=== PATIENT | female | born 1965 ===

== ENCOUNTER 2023-10-03 09:08 | Day surgery (SDC) | payer OTHER ==
[2023-10-03] VITALS (16 sets, daily range): BP systolic 111–134; BP diastolic 71–94
[~2023-10-03] VITALS: Ht 157.5 cm; Wt 78.0 kg
[~2023-10-03 09:08] MED LIST: BUPR150ER PO; Lactated Ringer's 1,000 ML IV SCH; NICO21TP TOP
[2023-10-03] MEDS ORDERED: Ipratropium/Albuterol SulF 2.5-0.5MG/3 ML Amp INH ONE (10:10)
--- NOTE | 2023-10-03 10:38 | NUR ---
POST DUONEB, PT BEING ENCOURAGED TO DEEP BREATH AND COUGH, AND PT REPOSITIONING - PT'S BREATH SOUNDS ARE STILL SHALLOW BUT SHE IS CLEAR THROUGHOUT BILATERALLY.
[2023-10-03] MEDS ORDERED: propofoL 40 ML IV ONE (10:47)
[2023-10-03] MEDS ORDERED: Midazolam HCl 1MG / ML 2ML Vial ONE (11:05)
--- NOTE | 2023-10-03 11:07 | NUR ---
10/03/23 1107 Tushar Lucero HISTORY, CHART, MEDICATIONS AND ALLERGIES REVIEWED BEFORE START OF PROCEDURE. PATIENT CONFIRMS NPO STATUS AND AGREES WITH SCHEDULED PROCEDURE. 3-LEAD EKG REVIEWED WITH PHYSICIAN PRIOR TO START OF PROCEDURE. MONITOR INTACT WITH CONTINUOUS PULSE OXIMETRY,CAPNOGRAPHY, 3-LEAD EKG, INTERMITTENT BP. SUPPLEMENTAL O2 TO BE TITRATED THROUGHOUT PROCEDURE TO MAINTAIN O2 SATURATION ABOVE 90%. PATIENT DETERMINED TO BE ASA APPROPRIATE FOR PROPOFOL SEDATION PRIOR TO START OF PROCEDURE BY
--- NOTE | 2023-10-03 11:40 | NUR ---
DISHARGE NOTE Patient up to Ambulate independently. Gait steady. Discharge instructions reviewed with patient. Patient verbalizes understanding. Copy given to patient to take home.Lungs clear T/O to Auscultation. Discharged via wheelchair to private car for ride home. PT breathing with normal respiratory effort.
== END 2023-10-03 23:31 | disposition home or self-care (01) ==
LOC: ORSCMMR 09:08 → ORD 10:00 → ORSCMMR 23:31
PROVIDERS: Internal Medicine Gastroenterology
PROC: 0DBP8ZX Excision of Rectum, Via Natural or Artificial Opening Endoscopic, Diagnostic (ICD-10-PCS; principal; 2023-10-03 10:00)
PROC: 0DBL8ZX Excision of Transverse Colon, Via Natural or Artificial Opening Endoscopic, Diagnostic (ICD-10-PCS; principal; 2023-10-03 10:00)
PROC: 0DBN8ZX Excision of Sigmoid Colon, Via Natural or Artificial Opening Endoscopic, Diagnostic (ICD-10-PCS; principal; 2023-10-03 10:00)
DX: R19.4 Change in bowel habit (principal); Z86.010 Personal history of colon polyps; K63.5 Polyp of colon; D12.3 Benign neoplasm of transverse colon; K62.1 Rectal polyp; F17.210 Nicotine dependence, cigarettes, uncomplicated; E88.01 Alpha-1-antitrypsin deficiency; J44.9 Chronic obstructive pulmonary disease, unspecified; R10.9 Unspecified abdominal pain; Z79.899 Other long term (current) drug therapy
CPT/HCPCS: 88305; J2250; J2704; J7120